=== PATIENT | male | born 1970 | race Caucasian/White ===

== ENCOUNTER 2020-08-26 00:30 | Inpatient (IN) | payer MEDICAID ==
[~2020-08-26] VITALS: Ht 188 cm; Wt 90.3 kg
[2020-08-26] MEDS: OLANZapine 5 MG RAPDIS TABLET PO SCH (00:20)
[2020-08-26] MEDS ORDERED: MAG HYDROX/AL HYDROX/SIMETH ES 30 ML SUSPENSION UDCUP PO PRN (20:30)
[2020-08-26] MEDS ORDERED: PROMETHAZINE HCL 25 MG TABLET PO PRN (20:30)
[2020-08-26] MEDS ORDERED: MAGNESIUM HYDROXIDE SUSPENSION 30 ML UDCUP PO PRN (20:30)
[2020-08-26] MEDS ORDERED: ACETAMINOPHEN 325 MG TABLET PO PRN (20:30)
[2020-08-26] MEDS ORDERED: TUBERCULIN, PURIFIED PROTEIN DERIVATIVE 5 TU/0.1 ML SYRINGE ID ONE (20:30)
[2020-08-26] MEDS ORDERED: CYANOCOBALAMIN 1,000 MCG/ML VIAL IM ONE (20:30)
[2020-08-26] MEDS ORDERED: GuaiFENesin/D-METHORPHAN [SUGAR-FREE] 200-20MG/10 ML SYRUP UDCUP PO PRN (20:30)
[2020-08-26] MEDS ORDERED: LOPERAMIDE HCL 2 MG CAPSULE PO PRN ×2 (20:30)
[2020-08-26] MEDS ORDERED: DIAZEPAM 10 MG TABLET PO PRN (20:30)
[2020-08-27] VITALS (12 sets, daily range): BP systolic 105–121; BP diastolic 61–69
[2020-08-27] MEDS: MELATONIN 5 MG TABLET PO SCH ×2 (00:20→20:44)
[2020-08-27] MEDS ORDERED: INFLUENZA VIRUS VACCINE QVS 2020-21 (6MO+)/PF 60 MCG/0.5 ML SYRINGE IM ONE (01:00)
[2020-08-27] MEDS ORDERED: DIAZEPAM 10 MG TABLET PO PRN (07:00)
[2020-08-27] MEDS: OMEGA-3/DHA/EPA/FISH OIL 1,000 MG CAPSULE PO SCH (09:27)
[2020-08-27] MEDS: NALTREXONE HCL 50 MG TABLET PO SCH (09:27)
[2020-08-27] MEDS: THIAMINE 100 MG TABLET PO SCH ×2 (09:27→16:18)
[2020-08-27] MEDS: DIAZEPAM 10 MG TABLET PO SCH ×4 (09:27→20:44)
[2020-08-27] MEDS: FLUoxetine HCL 20 MG CAPSULE PO SCH (09:27)
[2020-08-27] MEDS: FOLIC ACID 1 MG TABLET PO SCH (09:28)
[2020-08-27] MEDS: MULTIVITAMINS WITH MINERALS, THERAPEUTIC TABLET PO SCH (13:49)
[2020-08-27] MEDS ORDERED: CYANOCOBALAMIN 1,000 MCG/ML VIAL IM ONE (14:15)
[2020-08-27] MEDS: HydrOXYzine PAMOATE 50 MG CAPSULE PO PRN (16:18)
[2020-08-27] MEDS: OLANZapine 5 MG RAPDIS TABLET PO PRN (16:19)
[2020-08-27] MEDS: GABAPENTIN 300 MG CAPSULE PO SCH ×2 (16:58→20:44)
[2020-08-27] MEDS: TraZODone HCL 50 MG TABLET PO SCH (20:44)
[2020-08-27] MEDS: OLANZapine 5 MG RAPDIS TABLET PO SCH (20:45)
[2020-08-28 03:11] VITALS: BP 118/78
[2020-08-28 05:05] VITALS: BP 112/67
[2020-08-28 05:06] VITALS: BP 120/80
[2020-08-28 08:24] VITALS: BP 102/62
[2020-08-28] MEDS: GABAPENTIN 300 MG CAPSULE PO SCH ×4 (09:09→22:21)
[2020-08-28] MEDS: NALTREXONE HCL 50 MG TABLET PO SCH (09:09)
[2020-08-28] MEDS: MULTIVITAMINS WITH MINERALS, THERAPEUTIC TABLET PO SCH (09:09)
[2020-08-28] MEDS: THIAMINE 100 MG TABLET PO SCH ×2 (09:09→17:34)
[2020-08-28] MEDS: FOLIC ACID 1 MG TABLET PO SCH (09:09)
[2020-08-28] MEDS: FLUoxetine HCL 20 MG CAPSULE PO SCH (09:09)
[2020-08-28] MEDS: OMEGA-3/DHA/EPA/FISH OIL 1,000 MG CAPSULE PO SCH (09:09)
[2020-08-28] MEDS: HydrOXYzine PAMOATE 50 MG CAPSULE PO PRN (09:10)
[2020-08-28 09:23] LABS: BASOPHILS % (AUTO) 0.9 % (0.0-2.0); EOSINOPHILS % (AUTO) 1.9 % (1.0-6.0); HEMATOCRIT 44.3 % (41-53); HEMOGLOBIN 15.2 g/dL (13.5-17.5); LYMPHOCYTES # (AUTO) 0.9 K/uL (1.0-4.8); LYMPHOCYTES % (AUTO) 15.9 % (22.0-44.0); MEAN CORPUSCULAR HEMOGLOBIN 33.3 pg (26.0-34.0); MEAN CORPUSCULAR HGB CONC 34.3 G/dL (31.0-37.0); MEAN CORPUSCULAR VOLUME 97 fL (80-100); MONOCYTES # (AUTO) 0.4 K/uL (0.1-1.0); MONOCYTES % (AUTO) 6.5 % (2.0-9.0); NEUTROPHILS # (AUTO) 4.4 K/uL (1.8-7.7); NEUTROPHILS % (AUTO) 74.8 % (40.0-70.0); PLATELET COUNT (AUTO) 303 K/uL (150-450); RED BLOOD CELL COUNT(AUTO) 4.56 MIL/uL (4.50-5.90); RED CELL DISTRIBUTION WIDTH 15.9 % (11.5-14.5)
[2020-08-28] MEDS: DIAZEPAM 10 MG TABLET PO SCH ×4 (09:24→22:21)
[2020-08-28 10:18] LABS: ALANINE AMINOTRANSFERASE 29 U/L (12-78); ALBUMIN 3.3 g/dL (3.4-5.0); ALKALINE PHOSPHATASE 51 U/L (46-116); ANION GAP 9 mmol/L (8-16); ASPARTATE AMINOTRANSFERASE 19 U/L (15-37); BILIRUBIN,TOTAL 0.3 mg/dL (0.1-1.0); CALCIUM, TOTAL 8.8 mg/dL (8.8-10.5); CARBON DIOXIDE 26 mmol/L (22-29); CHLORIDE 106 mmol/L (98-107); CHOL/HDL RATIO 3.8 (4.2-7.3); CHOLESTEROL 204 mg/dL (131-200); CREATININE 0.79 mg/dL (0.60-1.30); FREE T4 (FREE THYROXINE) 0.83 ng/dL (0.76-1.46); GLOMERULAR FILTR. RATE CALC > 60 mL/min (>60); GLUCOSE,RANDOM 102 mg/dL (70-110); HDL CHOLESTEROL 53 mg/dL (40-60); LDL CHOL (CALC.) 119 mg/dL (0-130); POTASSIUM 4.3 mmol/L (3.5-5.1); SODIUM SERUM 141 mmol/L (136-145); THYROID STIMULATING HORMONE 1.05 uIU/mL (0.36-3.74); TOTAL PROTEIN, SERUM 6.9 g/dL (6.4-8.2); TRIGLYCERIDES 158 mg/dL (15-150); UREA NITROGEN, BLOOD 15 mg/dL (7-18)
[2020-08-28 10:56] LABS: HEMOGLOBIN A1C 5.6 % (3.8-5.6)
[2020-08-28 16:14] VITALS: BP 136/82
[2020-08-28] MEDS: TraZODone HCL 50 MG TABLET PO SCH (22:21)
[2020-08-28] MEDS: OLANZapine 10 MG RAPDIS TABLET PO SCH (22:21)
[2020-08-28] MEDS: MELATONIN 5 MG TABLET PO SCH (22:23)
[2020-08-29 06:43] VITALS: BP 100/65
[2020-08-29] MEDS ORDERED: DIAZEPAM 5 MG TABLET PO PRN (07:00)
[2020-08-29 08:31] VITALS: BP 107/55
[2020-08-29] MEDS: FLUoxetine HCL 20 MG CAPSULE PO SCH (09:03)
[2020-08-29] MEDS: OMEGA-3/DHA/EPA/FISH OIL 1,000 MG CAPSULE PO SCH (09:03)
[2020-08-29] MEDS: NALTREXONE HCL 50 MG TABLET PO SCH (09:03)
[2020-08-29] MEDS: THIAMINE 100 MG TABLET PO SCH ×2 (09:03→16:57)
[2020-08-29] MEDS: GABAPENTIN 300 MG CAPSULE PO SCH ×2 (09:03→12:53)
[2020-08-29] MEDS: FOLIC ACID 1 MG TABLET PO SCH (09:03)
[2020-08-29] MEDS: MULTIVITAMINS WITH MINERALS, THERAPEUTIC TABLET PO SCH (09:04)
[2020-08-29] MEDS: HydrOXYzine PAMOATE 50 MG CAPSULE PO PRN (09:05)
[2020-08-29] MEDS: DIAZEPAM 5 MG TABLET PO SCH ×4 (09:19→20:27)
[2020-08-29 09:39] LABS: APPEARANCE,URINE CLEAR (CLEAR); BILIRUBIN,URINE NEGATIVE (NEGATIVE); GLUCOSE, URINE (UA) NEGATIVE (NEGATIVE); KETONES,URINE NEGATIVE (NEGATIVE); LEUKOCYTE ESTERASE ,URINE NEGATIVE (NEGATIVE); NITRATE,URINE NEGATIVE (NEGATIVE); OCCULT BLOOD,URINE NEGATIVE (NEGATIVE); PROTEIN,URINE NEGATIVE (NEGATIVE); UROBILINOGEN,URINE 0.2 mg/dL (<=1.0)
[2020-08-29 09:41] LABS: AMPHET/METH SCREEN,URINE NEGATIVE (NEGATIVE); BARBITURATE SCREEN, URINE NEGATIVE (NEGATIVE); BENZODIAZEPINES SCREEN,URINE POSITIVE (NEGATIVE); CANNABINOID SCREEN,URINE NEGATIVE (NEGATIVE); COCAINE SCREEN,URINE NEGATIVE (NEGATIVE); METHADONE SCREEN, URINE NEGATIVE (NEGATIVE); OPIATE SCREEN,URINE NEGATIVE (NEGATIVE)
[2020-08-29 10:12] LABS: PHENCYCLIDINE SCREEN,URINE NEGATIVE (NEGATIVE)
[2020-08-29 16:38] VITALS: BP 103/61
[2020-08-29] MEDS: GABAPENTIN 400 MG CAPSULE PO SCH ×2 (17:39→20:26)
[2020-08-29] MEDS: TraZODone HCL 100 MG TABLET PO SCH (20:26)
[2020-08-29] MEDS: OLANZapine 10 MG RAPDIS TABLET PO SCH (20:26)
[2020-08-29] MEDS: MELATONIN 5 MG TABLET PO SCH (20:26)
[2020-08-30 04:32] VITALS: BP 114/68
[2020-08-30] MEDS ORDERED: DIAZEPAM 5 MG TABLET PO PRN (07:00)
[2020-08-30] MEDS: THIAMINE 100 MG TABLET PO SCH ×2 (09:37→16:52)
[2020-08-30] MEDS: FOLIC ACID 1 MG TABLET PO SCH (09:37)
[2020-08-30] MEDS: OMEGA-3/DHA/EPA/FISH OIL 1,000 MG CAPSULE PO SCH (09:37)
[2020-08-30] MEDS: NALTREXONE HCL 50 MG TABLET PO SCH (09:37)
[2020-08-30] MEDS: GABAPENTIN 400 MG CAPSULE PO SCH (09:37)
[2020-08-30] MEDS: FLUoxetine HCL 20 MG CAPSULE PO SCH (09:37)
[2020-08-30] MEDS: MULTIVITAMINS WITH MINERALS, THERAPEUTIC TABLET PO SCH (09:37)
[2020-08-30] MEDS: OLANZapine 5 MG RAPDIS TABLET PO PRN (13:58)
[2020-08-30] MEDS ORDERED: GABAPENTIN 400 MG CAPSULE PO PRN (14:00)
[2020-08-30 16:00] VITALS: BP 108/68
[2020-08-30 16:21] VITALS: BP 108/68
[2020-08-30] MEDS: GABAPENTIN 300 MG CAPSULE PO SCH ×2 (16:53→21:09)
[2020-08-30] MEDS: TraZODone HCL 100 MG TABLET PO SCH (21:09)
[2020-08-30] MEDS: MELATONIN 5 MG TABLET PO SCH (21:09)
[2020-08-30] MEDS: OLANZapine 10 MG RAPDIS TABLET PO SCH (21:09)
[2020-08-31 05:19] VITALS: BP 110/71
[2020-08-31] MEDS: OMEGA-3/DHA/EPA/FISH OIL 1,000 MG CAPSULE PO SCH (08:57)
[2020-08-31] MEDS: GABAPENTIN 300 MG CAPSULE PO SCH ×4 (08:57→20:33)
[2020-08-31] MEDS: FLUoxetine HCL 20 MG CAPSULE PO SCH (08:57)
[2020-08-31] MEDS: FOLIC ACID 1 MG TABLET PO SCH (08:57)
[2020-08-31] MEDS: NALTREXONE HCL 50 MG TABLET PO SCH (08:57)
[2020-08-31] MEDS: MULTIVITAMINS WITH MINERALS, THERAPEUTIC TABLET PO SCH (08:58)
[2020-08-31] MEDS: THIAMINE 100 MG TABLET PO SCH ×2 (08:58→17:18)
[2020-08-31] MEDS: OLANZapine 5 MG RAPDIS TABLET PO PRN (17:18)
[2020-08-31] MEDS: HydrOXYzine PAMOATE 50 MG CAPSULE PO PRN (17:18)
[2020-08-31 17:23] VITALS: BP 104/60
[2020-08-31] MEDS: MELATONIN 5 MG TABLET PO SCH (20:34)
[2020-08-31] MEDS: OLANZapine 10 MG RAPDIS TABLET PO SCH (20:34)
[2020-08-31] MEDS: ZOLPIDEM TARTRATE 10 MG TABLET PO PRN (20:34)
[2020-08-31] MEDS: TraZODone HCL 100 MG TABLET PO SCH (20:34)
[2020-09-01 02:50] VITALS: BP 110/68
[2020-09-01] MEDS: MULTIVITAMINS WITH MINERALS, THERAPEUTIC TABLET PO SCH (08:58)
[2020-09-01] MEDS: FLUoxetine HCL 20 MG CAPSULE PO SCH (08:59)
[2020-09-01] MEDS: GABAPENTIN 300 MG CAPSULE PO SCH ×4 (08:59→20:38)
[2020-09-01] MEDS: FOLIC ACID 1 MG TABLET PO SCH (08:59)
[2020-09-01] MEDS: OMEGA-3/DHA/EPA/FISH OIL 1,000 MG CAPSULE PO SCH (08:59)
[2020-09-01] MEDS: THIAMINE 100 MG TABLET PO SCH ×2 (09:00→16:37)
[2020-09-01] MEDS: NALTREXONE HCL 50 MG TABLET PO SCH (09:00)
[2020-09-01 09:05] VITALS: BP 100/60
[2020-09-01 16:00] VITALS: BP 100/60
[2020-09-01 16:19] VITALS: BP 100/60
[2020-09-01] MEDS: OLANZapine 5 MG RAPDIS TABLET PO PRN (16:38)
[2020-09-01] MEDS: MELATONIN 5 MG TABLET PO SCH (20:38)
[2020-09-01] MEDS: OLANZapine 10 MG RAPDIS TABLET PO SCH (20:38)
[2020-09-01] MEDS: TraZODone HCL 100 MG TABLET PO SCH (20:38)
[2020-09-01] MEDS: ZOLPIDEM TARTRATE 10 MG TABLET PO PRN (20:39)
[2020-09-02 05:13] VITALS: BP 117/66
[2020-09-02 08:31] VITALS: BP 140/75
[2020-09-02] MEDS: GABAPENTIN 300 MG CAPSULE PO SCH ×4 (09:41→20:53)
[2020-09-02] MEDS: OMEGA-3/DHA/EPA/FISH OIL 1,000 MG CAPSULE PO SCH (09:42)
[2020-09-02] MEDS: FLUoxetine HCL 20 MG CAPSULE PO SCH (09:42)
[2020-09-02] MEDS: THIAMINE 100 MG TABLET PO SCH ×2 (09:42→17:11)
[2020-09-02] MEDS: FOLIC ACID 1 MG TABLET PO SCH (09:42)
[2020-09-02] MEDS: MULTIVITAMINS WITH MINERALS, THERAPEUTIC TABLET PO SCH (09:42)
[2020-09-02] MEDS: NALTREXONE HCL 50 MG TABLET PO SCH (09:42)
[2020-09-02 16:31] VITALS: BP 99/60
[2020-09-02] MEDS: LITHIUM CARBONATE 300 MG CAPSULE PO SCH (17:11)
[2020-09-02] MEDS: OLANZapine 5 MG RAPDIS TABLET PO PRN (18:48)
[2020-09-02] MEDS: TraZODone HCL 100 MG TABLET PO SCH (20:53)
[2020-09-02] MEDS: DIVALPROEX SODIUM 500 MG ER TABLET PO SCH (20:53)
[2020-09-02] MEDS: OLANZapine 10 MG RAPDIS TABLET PO SCH (20:54)
[2020-09-02] MEDS: MELATONIN 5 MG TABLET PO SCH (20:54)
[2020-09-03 04:32] VITALS: BP 108/63
[2020-09-03 08:07] VITALS: BP 115/72
[2020-09-03] MEDS: NALTREXONE HCL 50 MG TABLET PO SCH (09:19)
[2020-09-03] MEDS: FOLIC ACID 1 MG TABLET PO SCH (09:19)
[2020-09-03] MEDS: GABAPENTIN 300 MG CAPSULE PO SCH ×4 (09:19→20:37)
[2020-09-03] MEDS: OMEGA-3/DHA/EPA/FISH OIL 1,000 MG CAPSULE PO SCH (09:19)
[2020-09-03] MEDS: FLUoxetine HCL 20 MG CAPSULE PO SCH (09:19)
[2020-09-03] MEDS: THIAMINE 100 MG TABLET PO SCH ×2 (09:19→16:05)
[2020-09-03] MEDS: MULTIVITAMINS WITH MINERALS, THERAPEUTIC TABLET PO SCH (09:19)
[2020-09-03] MEDS: LITHIUM CARBONATE 300 MG CAPSULE PO SCH ×3 (09:19→16:06)
[2020-09-03] MEDS ORDERED: NICOTINE POLACRILEX 4 MG LOZENGE PO ONE (15:15)
[2020-09-03] MEDS: OLANZapine 5 MG RAPDIS TABLET PO PRN (16:06)
[2020-09-03 16:09] VITALS: BP 105/60
[2020-09-03] MEDS: OLANZapine 10 MG RAPDIS TABLET PO SCH (20:36)
[2020-09-03] MEDS: DIVALPROEX SODIUM 500 MG ER TABLET PO SCH (20:36)
[2020-09-03] MEDS: TraZODone HCL 100 MG TABLET PO SCH (20:36)
[2020-09-03] MEDS: ZOLPIDEM TARTRATE 10 MG TABLET PO PRN (20:37)
[2020-09-03] MEDS: MELATONIN 5 MG TABLET PO SCH (20:37)
[2020-09-04 03:42] VITALS: BP 110/71
[2020-09-04 07:56] LABS: LITHIUM 0.41 mmol/L (0.60-1.20)
[2020-09-04 08:40] VITALS: BP 112/74
[2020-09-04] MEDS: GABAPENTIN 300 MG CAPSULE PO SCH ×4 (08:44→20:10)
[2020-09-04] MEDS: NALTREXONE HCL 50 MG TABLET PO SCH (08:45)
[2020-09-04] MEDS: MULTIVITAMINS WITH MINERALS, THERAPEUTIC TABLET PO SCH (08:45)
[2020-09-04] MEDS: LITHIUM CARBONATE 300 MG CAPSULE PO SCH ×3 (08:45→16:46)
[2020-09-04] MEDS: FOLIC ACID 1 MG TABLET PO SCH (08:45)
[2020-09-04] MEDS: THIAMINE 100 MG TABLET PO SCH ×2 (08:45→16:45)
[2020-09-04] MEDS: FLUoxetine HCL 20 MG CAPSULE PO SCH (08:45)
[2020-09-04] MEDS: OMEGA-3/DHA/EPA/FISH OIL 1,000 MG CAPSULE PO SCH (08:45)
[2020-09-04] MEDS: OLANZapine 5 MG RAPDIS TABLET PO PRN (08:46)
[2020-09-04 16:57] VITALS: BP 105/61
[2020-09-04] MEDS: DIVALPROEX SODIUM 500 MG ER TABLET PO SCH (20:10)
[2020-09-04] MEDS: OLANZapine 10 MG RAPDIS TABLET PO SCH (20:10)
[2020-09-04] MEDS: TraZODone HCL 100 MG TABLET PO SCH (20:10)
[2020-09-04] MEDS: MELATONIN 5 MG TABLET PO SCH (21:23)
[2020-09-05 08:19] VITALS: BP 104/69
[2020-09-05] MEDS: GABAPENTIN 300 MG CAPSULE PO SCH ×4 (08:54→20:04)
[2020-09-05] MEDS: NALTREXONE HCL 50 MG TABLET PO SCH (08:54)
[2020-09-05] MEDS: MULTIVITAMINS WITH MINERALS, THERAPEUTIC TABLET PO SCH (08:55)
[2020-09-05] MEDS: FLUoxetine HCL 20 MG CAPSULE PO SCH (08:55)
[2020-09-05] MEDS: THIAMINE 100 MG TABLET PO SCH (08:55)
[2020-09-05] MEDS: OMEGA-3/DHA/EPA/FISH OIL 1,000 MG CAPSULE PO SCH (08:55)
[2020-09-05] MEDS: LITHIUM CARBONATE 300 MG CAPSULE PO SCH ×2 (08:55→16:36)
[2020-09-05] MEDS: FOLIC ACID 1 MG TABLET PO SCH (08:55)
[2020-09-05] MEDS: OLANZapine 5 MG RAPDIS TABLET PO PRN (08:56)
[2020-09-05 16:12] VITALS: BP 108/62
[2020-09-05] MEDS: MELATONIN 5 MG TABLET PO SCH (20:04)
[2020-09-05] MEDS: TraZODone HCL 100 MG TABLET PO SCH (20:04)
[2020-09-05] MEDS: DIVALPROEX SODIUM 500 MG ER TABLET PO SCH (20:04)
[2020-09-05] MEDS: OLANZapine 10 MG RAPDIS TABLET PO SCH (20:05)
[2020-09-05] MEDS: NICOTINE POLACRILEX 4 MG LOZENGE PO PRN (20:08)
[2020-09-06 04:45] VITALS: BP 117/68
[2020-09-06 08:47] VITALS: BP 108/64
[2020-09-06] MEDS: LITHIUM CARBONATE 300 MG CAPSULE PO SCH ×2 (09:00→16:39)
[2020-09-06] MEDS: MULTIVITAMINS WITH MINERALS, THERAPEUTIC TABLET PO SCH (09:00)
[2020-09-06] MEDS: NALTREXONE HCL 50 MG TABLET PO SCH (09:00)
[2020-09-06] MEDS: FLUoxetine HCL 20 MG CAPSULE PO SCH (09:00)
[2020-09-06] MEDS: GABAPENTIN 300 MG CAPSULE PO SCH ×4 (09:01→20:33)
[2020-09-06] MEDS: OMEGA-3/DHA/EPA/FISH OIL 1,000 MG CAPSULE PO SCH (09:01)
[2020-09-06 16:46] VITALS: BP 104/66
[2020-09-06] MEDS: NICOTINE POLACRILEX 4 MG LOZENGE PO PRN (18:47)
[2020-09-06] MEDS: OLANZapine 10 MG RAPDIS TABLET PO SCH (20:32)
[2020-09-06] MEDS: TraZODone HCL 100 MG TABLET PO SCH (20:33)
[2020-09-06] MEDS: DIVALPROEX SODIUM 500 MG ER TABLET PO SCH (20:33)
[2020-09-06] MEDS: MELATONIN 5 MG TABLET PO SCH (20:33)
[2020-09-07 06:03] VITALS: BP 109/67
[2020-09-07] MEDS: LITHIUM CARBONATE 300 MG CAPSULE PO SCH ×2 (08:51→16:32)
[2020-09-07] MEDS: MULTIVITAMINS WITH MINERALS, THERAPEUTIC TABLET PO SCH (08:51)
[2020-09-07] MEDS: NALTREXONE HCL 50 MG TABLET PO SCH (08:51)
[2020-09-07] MEDS: FLUoxetine HCL 20 MG CAPSULE PO SCH (08:51)
[2020-09-07] MEDS: GABAPENTIN 300 MG CAPSULE PO SCH ×4 (08:51→21:31)
[2020-09-07] MEDS: OMEGA-3/DHA/EPA/FISH OIL 1,000 MG CAPSULE PO SCH (08:51)
[2020-09-07 10:36] VITALS: BP 103/63
[2020-09-07 16:23] VITALS: BP 110/78
[2020-09-07] MEDS: OLANZapine 5 MG RAPDIS TABLET PO PRN (16:32)
[2020-09-07] MEDS: OLANZapine 10 MG RAPDIS TABLET PO SCH (20:27)
[2020-09-07] MEDS: TraZODone HCL 100 MG TABLET PO SCH (20:28)
[2020-09-07] MEDS: DIVALPROEX SODIUM 500 MG ER TABLET PO SCH (20:28)
[2020-09-07] MEDS: MELATONIN 5 MG TABLET PO SCH (20:28)
[2020-09-07] MEDS: NICOTINE POLACRILEX 4 MG LOZENGE PO PRN (20:29)
[2020-09-08 04:20] VITALS: BP 123/78
[2020-09-08 08:42] VITALS: BP 102/60
[2020-09-08] MEDS: OMEGA-3/DHA/EPA/FISH OIL 1,000 MG CAPSULE PO SCH (09:46)
[2020-09-08] MEDS: NALTREXONE HCL 50 MG TABLET PO SCH (09:46)
[2020-09-08] MEDS: GABAPENTIN 300 MG CAPSULE PO SCH ×4 (09:46→20:55)
[2020-09-08] MEDS: LITHIUM CARBONATE 300 MG CAPSULE PO SCH ×2 (09:46→17:26)
[2020-09-08] MEDS: MULTIVITAMINS WITH MINERALS, THERAPEUTIC TABLET PO SCH (09:47)
[2020-09-08] MEDS: FLUoxetine HCL 20 MG CAPSULE PO SCH (09:47)
[2020-09-08 16:18] VITALS: BP 103/70
[2020-09-08] MEDS: TraZODone HCL 100 MG TABLET PO SCH (20:55)
[2020-09-08] MEDS: OLANZapine 10 MG RAPDIS TABLET PO SCH (20:55)
[2020-09-08] MEDS: MELATONIN 5 MG TABLET PO SCH (20:55)
[2020-09-08] MEDS: DIVALPROEX SODIUM 500 MG ER TABLET PO SCH (20:55)
[2020-09-09 02:35] VITALS: BP 122/69
[2020-09-09] MEDS: FLUoxetine HCL 20 MG CAPSULE PO SCH (08:57)
[2020-09-09] MEDS: OMEGA-3/DHA/EPA/FISH OIL 1,000 MG CAPSULE PO SCH (08:58)
[2020-09-09] MEDS: NALTREXONE HCL 50 MG TABLET PO SCH (08:58)
[2020-09-09] MEDS: GABAPENTIN 300 MG CAPSULE PO SCH ×4 (08:58→20:03)
[2020-09-09] MEDS: LITHIUM CARBONATE 300 MG CAPSULE PO SCH ×2 (08:58→16:13)
[2020-09-09] MEDS: MULTIVITAMINS WITH MINERALS, THERAPEUTIC TABLET PO SCH (08:58)
[2020-09-09 09:10] VITALS: BP 115/62
[2020-09-09 16:32] VITALS: BP 101/61
[2020-09-09] MEDS: OLANZapine 10 MG RAPDIS TABLET PO SCH (20:02)
[2020-09-09] MEDS: DIVALPROEX SODIUM 500 MG ER TABLET PO SCH (20:02)
[2020-09-09] MEDS: TraZODone HCL 100 MG TABLET PO SCH (20:03)
[2020-09-09] MEDS: MELATONIN 5 MG TABLET PO SCH (20:03)
[2020-09-09] MEDS: ZOLPIDEM TARTRATE 10 MG TABLET PO PRN (20:03)
[2020-09-10 05:25] VITALS: BP 116/64
[2020-09-10] MEDS: GABAPENTIN 300 MG CAPSULE PO SCH ×3 (09:21→16:14)
[2020-09-10] MEDS: LITHIUM CARBONATE 300 MG CAPSULE PO SCH ×2 (09:21→16:14)
[2020-09-10] MEDS: MULTIVITAMINS WITH MINERALS, THERAPEUTIC TABLET PO SCH (09:21)
[2020-09-10] MEDS: FLUoxetine HCL 20 MG CAPSULE PO SCH (09:22)
[2020-09-10] MEDS: OMEGA-3/DHA/EPA/FISH OIL 1,000 MG CAPSULE PO SCH (09:22)
[2020-09-10] MEDS: NALTREXONE HCL 50 MG TABLET PO SCH (09:22)
[2020-09-10 17:41] VITALS: BP 101/58
[2020-09-10] MEDS: MELATONIN 5 MG TABLET PO SCH (20:29)
[2020-09-10] MEDS: DIVALPROEX SODIUM 500 MG ER TABLET PO SCH (20:29)
[2020-09-10] MEDS: OLANZapine 10 MG RAPDIS TABLET PO SCH (20:29)
[2020-09-10] MEDS: TraZODone HCL 100 MG TABLET PO SCH (20:29)
[2020-09-10] MEDS: GABAPENTIN 400 MG CAPSULE PO SCH (20:29)
[2020-09-11 05:21] VITALS: BP 110/61
[2020-09-11 08:20] VITALS: BP 104/63
[2020-09-11] MEDS: OMEGA-3/DHA/EPA/FISH OIL 1,000 MG CAPSULE PO SCH (08:39)
[2020-09-11] MEDS: LITHIUM CARBONATE 300 MG CAPSULE PO SCH (08:39)
[2020-09-11] MEDS: NALTREXONE HCL 50 MG TABLET PO SCH (08:39)
[2020-09-11] MEDS: GABAPENTIN 400 MG CAPSULE PO SCH ×2 (08:39→12:32)
[2020-09-11] MEDS: OLANZapine 5 MG RAPDIS TABLET PO PRN (08:40)
[2020-09-11] MEDS: FLUoxetine HCL 20 MG CAPSULE PO SCH (08:40)
[2020-09-11] MEDS: MULTIVITAMINS WITH MINERALS, THERAPEUTIC TABLET PO SCH (08:40)
[2020-09-11] MEDS ORDERED: LITH300C3 PO (09:50)
[2020-09-11] MEDS ORDERED: MELA5TAB3 PO (09:50)
[2020-09-11] MEDS ORDERED: NALT50TA PO (09:50)
[2020-09-11] MEDS ORDERED: GABA-1201 PO (09:50)
[2020-09-11] MEDS ORDERED: OMEG-135 PO (09:50)
[2020-09-11] MEDS ORDERED: DIVA-80 PO (09:50)
[2020-09-11] MEDS ORDERED: OLAN10TA22 PO (09:50)
[2020-09-11] MEDS ORDERED: TRAZ-257 PO (09:50)
[2020-09-11] MEDS ORDERED: FLUO-191 PO (09:50)
== END 2020-09-11 21:17 | disposition home or self-care (01) | DRG 750 ==
LOC: B3A 23:48
PROVIDERS: ADMIT Psychiatry & Neurology Psychiatry; ATTEND Psychiatry & Neurology Psychiatry
DX: F25.1 Schizoaffective disorder, depressive type (principal); Z87.891 Personal history of nicotine dependence; R45.851 Suicidal ideations; Z59.0 Homelessness; Z55.9 Problems related to education and literacy, unspecified; Z65.3 Problems related to other legal circumstances
CPT/HCPCS: 80307; 83036; 84439; 84443; 86592; 90686; A9575; J3420